=== PATIENT | male | born 1965 | race Caucasian/White ===

== ENCOUNTER 2022-08-20 04:57 | Outpatient (CLI) | payer MEDICAID, OTHER | END 2022-08-20 23:59 | disposition critical access hospital (66) | LOC: EMS 04:57 | DX: M62.830 Muscle spasm of back (principal) | CPT/HCPCS: A0425; A0429 ==

== ENCOUNTER 2022-08-20 05:15 | Emergency (ER) | payer MEDICAID ==
--- NOTE | 2022-08-20 05:55 | ED Physician Documentation ---
PD HPI BACK PAIN - Stated complaint Stated Complaint: BACK PAIN S/P [place] - Chief complaint Chief Complaint: Back Pain - History obtained from History obtained from: Patient - Additional information Additional information: HPI from patient. 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 Pain is exacerbated with movement, palpation, po sition (standing). Patient says he has had similar symptoms before but never this severe nor this persistent. Review of Systems Constitutional: denies: Fever : denies: Unable to Void, Incontinent Skin: denies: Rash Musculoskeletal: reports: Back pain Neurologic: denies: Focal weakness, Numbness PD PAST MEDICAL HISTORY - Past Medical History Past Medical History: No - Past Surgical History Past Surgical History: No - Present Medications Home Medications: Ambulatory Orders Medication Instructions Recorded Confirmed Cyclobenzaprine [Flexeril] 10 mg PO TID PRN #20 tablet 08/20/22 Ondansetron Odt [Zofran Odt] 4 mg TL Q6H PRN #14 tablet 08/20/22 oxyCODONE [Roxicodone] 5 - 10 mg PO Q6H PRN #20 tablet 08/20/22 - Allergies Allergies/Adverse Reactions: Allergies Allergy/AdvReac Type Severity Reaction Status Date / Time No Known Drug Allergies Allergy Verified 08/20/22 05:23 - Social History Does the pt smoke?: Yes Smoking Status: Current every day smoker Does the pt drink ETOH?: No Does the pt have substance abuse?: No - Immunizations Immunizations are current?: Yes - POLST Patient has POLST: No PD ED PE NORMAL - Vitals Vital signs reviewed: Yes - General General: Alert and oriented X 3, No acute distress, Well developed/nourished - Abdomen Abdomen: Soft, Non tender - Back Back: No spinal TTP - Derm Derm: Normal color, Warm and dry, No rash - Neuro Neuro: No motor deficit (5/5 bilateral dorsi/plantarflexion), No sensory deficit (LTS intact BLE) Results - Vitals Vitals: Oxygen O2 Source Room air PD Medical Decision Making - ED course Complexity details: re-evaluated patient, considered differential, d/w patient ED course: Presents with atraumatic LBP although there was an inciting event (pushing airport guide). No "red flags" on H+P; no c/o urinary/bowel incontinence, no numbness, no weakness. Thus, no testing performed at this time. He is given 1mg IM dilaudid, 10mg PO flexeril, and 4mg TL zofran (prophylaxis against n/v side effect of hydromorphone). On reevaluation, he reports symptomatic relief and is able to get up and walk around without exacerbation of the pain. Return precautions discussed. I advised him to establish with local PMD for reevaluation of his back pain. Oxycodone, flexeril, zofran provided to patient. Departure - Departure Disposition: Home, Self Care Clinical Impression: Back pain Qualifiers: Back pain location: low back pain Chronicity: acute Back pain laterality: bilateral Sciatica presence: without sciatica Qualified Code(s): M54.50 - Low back pain, unspecified Condition: Good Instructions: ED Neck Back Pain General Follow-Up: Zoë Avery PA-C [Provider Admit Priv/Credential] - Prescriptions: Cyclobenzaprine [Flexeril] 10 mg PO TID PRN #20 tablet PRN Reason: Spasms oxyCODONE [Roxicodone] 5 - 10 mg PO Q6H PRN #20 tablet PRN Reason: Pain >8 Ondansetron Odt [Zofran Odt] 4 mg TL Q6H PRN #14 tablet PRN Reason: Nausea / Vomiting Comments: Based on the description and timing of your symptoms, I suspect that your back pain is musculoskeletal in origin (such as nerve impingement, herniated disc(s), muscle spasm). I recommend that you establish with a local primary care provider so that you can follow-up for your back pain. At this time, there were no indications for emergent testing (such as x-rays, CAT scan, or MRI), but you might benefit from such study if your pain is ongoing and/or recurrent. I am providing you with prescriptions for oxycodone (narcotic/opiate pain medication), Flexeril (muscle relaxant), and ondansetron (antinausea medication). I am prescribing a short course of narcotic pain medication for you. These are potentially dangerous and addictive medications that should be used carefully. These medications may constipate you. Take an hgms-vbr-oeutgvi stool softener (docusate) twice daily with plenty of water while taking these medications. If you go 24 hours without a bowel movement, take aakr-edx-ziaiske miralax, per package instructions. Do not drink or drive while taking these medications. If you received narcotic or sedating medications while in the emergency department, do not drive for 24 hours. Store this medication in a safe, secure place and out of reach of children. It is a violation of federal law to give or sell this medication to another person or to use in a manner other than prescribed. The ED will not refill narcotic prescriptions, including prescriptions lost or stolen. To dispose of unwanted medications: 1. [facility] at [address] in [place] has a medication drop box. They accept prescription medications (in pill form) Monday through Monday 9:00 a.m. to 5:00 p.m. 2. The [facility] [place] [employer] accepts prescription medications (in pill form only) for disposal year round. Call for more information. 3. Contact the [facility] for the next [facility] sponsored prescription drug collection event. , [phone], or [phone]; Discharge Date/Time: 08/20/22 07:39
[2022-08-20] MEDS ORDERED: CYCLOBENZAPRINE 10 MG TABLET PO STA (06:03)
[2022-08-20] MEDS ORDERED: HYDROmorphone 1 MG/ML CARPUJECT IM STA (06:03)
[2022-08-20 07:17] VITALS: BP 126/83
[2022-08-20] MEDS ORDERED: oxyCODONE 5 MG TABLET PO STA (07:25)
[2022-08-20] MEDS ORDERED: ONDANSETRON ODT 4 MG TABLET TL STA (07:25)
== END 2022-08-20 07:39 | disposition home or self-care (01) ==
LOC: EDUNIT# → ED 05:15
DX: M54.50 Low back pain, unspecified (principal); F17.200 Nicotine dependence, unspecified, uncomplicated; X50.1XXA Overexertion from prolonged static or awkward postures, initial encounter; Y93.H2 Activity, gardening and landscaping
CPT/HCPCS: 96372; 99283; A9270; J1170; Q0162

== ENCOUNTER 2022-11-27 20:26 | Outpatient (CLI) | payer MEDICAID ==
--- NOTE | 2022-11-28 03:10 | XRAY Report ---
PROCEDURE: Lumbar Spine 2 View INDICATIONS: RADICULOPATHY, LUMBOSACRAL REGION TECHNIQUE: 2 views of the lumbar spine were acquired. COMPARISON: None. FINDINGS: Bones: 5 peu-aiz-hwjcker vertebrae are present. There is a mild rightward curvature of the thoracal lumbar spine centered at L2. No vertebral body compression fractures. There is multilevel degenerati ve disease including moderate degeneration at L5-S1 with endplate sclerosis and osteophytosis. Mild f acet arthropathy also demonstrated at L5-S1. No suspicious bony lesions. Soft tissues: Overlying bowel gas pattern is normal. There is vascular calcification of the aorta. IMPRESSION: 1. Mild rightward curvature of the thoracolumbar spine. 2. Multilevel degenerative disc disease including moderate degeneration at L5-S1. 3. Mild facet arthropathy at L5-S1. Reviewed by: Roger Wood MD on 11/28/2022 3:08 AM PDT Approved by: Roger Wood MD on 11/28/2022 3:08 AM PDT Station ID: [id number]
== END 2022-11-27 20:27 | disposition home or self-care (01) ==
LOC: DI 20:26
PROVIDERS: ATTEND Registered Nurse
DX: M51.36 Other intervertebral disc degeneration, lumbar region (principal); M51.37 Other intervertebral disc degeneration, lumbosacral region; M47.817 Spondylosis without myelopathy or radiculopathy, lumbosacral region; M47.816 Spondylosis without myelopathy or radiculopathy, lumbar region